=== PATIENT | female | born 1980 | race Caucasian/White ===

== ENCOUNTER 2020-11-01 23:58 | Emergency (ER) | payer BC, OTHER ==
[~2020-11-01] VITALS: Ht 157.5 cm; Wt 63.6 kg
[2020-11-02 00:04] VITALS: BP 141/101
[2020-11-02 01:08] LABS: BASOPHILS # (AUTO) 0.1 X10'3 (0-0.2); BASOPHILS % (AUTO) 0.6 % (0-1); EOSINOPHILS # (AUTO) 0.3 X10'3 (0-0.9); EOSINOPHILS % (AUTO) 3.9 % (0-6); HEMATOCRIT 41.5 % (35.0-45.0); HEMOGLOBIN 14.2 g/dl (12.0-16.0); LYMPHOCYTES % (AUTO) 33.9 % (21-51); MEAN CORPUSCULAR HEMOGLOBIN 31.9 PG (27.0-31.0); MEAN CORPUSCULAR HGB CONC 34.1 g/dL (33.0-36.5); MEAN CORPUSCULAR VOLUME 93.4 FL (78-98); MEAN PLATELET VOLUME 7.6 FL (7.4-10.4); MONOCYTES # (AUTO) 0.7 X10'3 (0-0.9); MONOCYTES % (AUTO) 7.5 % (2-12); NEUTROPHILS # (AUTO) 4.8 X10'3 (1.8-7.7); NEUTROPHILS % (AUTO) 54.1 % (42-75); PLATELET COUNT 296 X10'3 (140-440); RED BLOOD COUNT 4.45 X10'6 (4.20-5.60); WHITE BLOOD COUNT 8.8 X10'3 (4.5-11.0)
[2020-11-02 01:11] LABS: CLARITY,URINE CLEAR (Clear); COLOR,URINE STRAW (Yellow); GLUCOSE, URINE NEGATIVE (Neg); KETONES,URINE NEGATIVE (Neg); LEUKOCYTE ESTERASE ,URINE NEGATIVE (Neg); NITRITES, URINE NEGATIVE (Neg); OCCULT BLOOD,URINE NEGATIVE (Neg); PROTEIN,URINE NEGATIVE (Neg); URINE HCG NEGATIVE (NEG); UROBILINOGEN,URINE 0.2 E.U/dL (0.2-1.0)
[2020-11-02 01:17] LABS: ALANINE AMINOTRANSFERASE 51 U/L (12-78); ALBUMIN 4.1 G/DL (3.4-5.0); ALBUMIN/GLOBULIN RATIO 1.1 (1.1-1.5); ALKALINE PHOSPHATASE 101 IU/L (46-116); ANION GAP 12 (8-16); ASPARTATE AMINO TRANSFERASE 36 U/L (10-37); BILIRUBIN,TOTAL 0.2 MG/DL (0.1-1.0); BLOOD UREA NITROGEN 11 MG/DL (7-18); BUN/CREATININE RATIO 16.7 (6.6-38.0); CALCIUM 8.7 MG/DL (8.5-10.1); CHLORIDE 101 MMOL/L (99-107); CREATININE 0.66 MG/DL (0.40-0.90); GLUCOSE 94 MG/DL (70-104); LIPASE 111 U/L (73-393); POTASSIUM 3.7 MMOL/L (3.5-5.1); SODIUM 138 MMOL/L (135-145); TOTAL CARBON DIOXIDE 24.9 MMOL/L (24-32); TOTAL PROTEIN 7.8 G/DL (6.4-8.2); eGFR > 90 ML/MIN
[2020-11-02 01:32] LABS: UA COLLECTION TYPE CLN CATCH MIDSTREAM
== END 2020-11-02 04:22 | disposition left against medical advice (07) ==
LOC: ER 23:59
DX: R10.32 Left lower quadrant pain (principal); R30.0 Dysuria; Z53.21 Procedure and treatment not carried out due to patient leaving prior to being seen by health care provider
CPT/HCPCS: 36415; 80053; 81003; 81025; 83690; 85025

== ENCOUNTER 2025-01-04 08:55 | Emergency (ER) | payer OTHER ==
[~2025-01-04] VITALS: Ht 160 cm; Wt 65.5 kg
[2025-01-04 09:17] VITALS: TEMP 97.5
[2025-01-04 09:37] LABS: MEAN PLATELET VOLUME 7.2 FL (7.4-10.4); RED CELL DISTRIBUTION WIDTH 12.4 % (11.5-14.5)
[2025-01-04 09:55] LABS: CREATININE 0.72 MG/DL (0.40-0.90); TOTAL CARBON DIOXIDE 26.3 MMOL/L (24-32); eCRCL 82 ML/MIN; eGFR 88 ML/MIN
[2025-01-04 09:58] LABS: URINE HCG NEGATIVE (NEG)
[2025-01-04 10:15] LABS: LEUKOCYTE ESTERASE ,URINE NEGATIVE (Neg); NITRITES, URINE NEGATIVE (Neg); OCCULT BLOOD,URINE NEGATIVE (Neg)
[2025-01-04 10:17] LABS: UA COLLECTION TYPE CLN CATCH MIDSTREAM
[2025-01-04] MEDS ORDERED: ONDA-243 PO (11:29)
--- NOTE | 2025-01-04 11:30 | Physician Documentation ---
History of Present Illness ~ Chief Complaint: Abdominal Pain Stated Complaint: ABD PAIN Time Seen by MD: 11:21 HPI 44-year-old female presents to the ED with a complaint of midline pelvic pain for the last two days. She reports ongoing diarrhea symptoms denies any nausea or vomiting however.denies any fevers. Medication Reconciliation Allergies: Coded Allergies: No Known Allergies (Unverified , 01/04/25) Scheduled PRN ONDANSETRON ODT 4mg tablet (Ondansetron Odt), 1 TAB PO Q6H PRN PRN for nausea/vomiting Review of Systems All Other Systems at this time: Reviewed and Negative Physical Exam Vital Signs: Temperature: 97.5, Heart Rate: 93, Respiratory Rate: 15, BP: 146/94, Pulse Oximetry: 100, Weight: 65.450 Physical Exam General: Alert, no apparent distress. Chest: No accessory muscle use. Cardiovascular: Regular rate and rhythm, no murmurs. Gastrointestinal: Soft, mild lower quadrants, nondistended. Bowels sounds present. Neurologic: Oriented x4. Psychiatric: Normal mood and affect. Skin: Normal color, warm and dry. No edema, no ecchymosis. Progress Results/Orders Results/Orders Completed Orders - CHARLIE TONEY [employer] Urinalysis, Cult If Indicated (01/04/25 09:22) Hcg, Ur Ql (01/04/25 09:22) Cbc/Diff (01/04/25 09:22) Amylase (01/04/25 09:22) Lipase (01/04/25 09:22) CMP (01/04/25 09:22) Vital Signs 01/04/25 01/04/25 09:17 09:41 Temp 97.5 Pulse 93 Resp 18 15 B/P (MAP) 146/94 Pulse Ox 100 Laboratory Tests Test 01/04/25 09:30 01/04/25 09:45 White Blood Count 6.6 Red Blood Count 4.59 Hemoglobin 14.7 Hematocrit 42.3 Mean Corpuscular Volume 92.2 Mean Corpuscular Hemoglobin 32.1 H Mean Corpuscular Hemoglobin Concent 34.8 Red Cell Distribution Width 12.4 Platelet Count 276 Mean Platelet Volume 7.2 L Neutrophils (%) (Auto) 57.8 Lymphocytes (%) (Auto) 27.4 Monocytes (%) (Auto) 12.2 H Eosinophils (%) (Auto) 2.2 Basophils (%) (Auto) 0.4 Neutrophils # (Auto) 3.8 Lymphocytes # (Auto) 1.8 Monocytes # (Auto) 0.8 Eosinophils # (Auto) 0.1 Basophils # (Auto) 0.0 CBC Comment Sodium Level 135 Potassium Level 3.4 L Chloride Level 101 Carbon Dioxide Level 26.3 Anion Gap 8 Blood Urea Nitrogen 3 L Creatinine 0.72 Estimated GFR/1.73 m2 88 BUN/Creatinine Ratio 4.2 L Glucose Level 107 H Calcium Level 8.6 Total Bilirubin 0.6 Aspartate Amino Transf (AST/SGOT) 24 Alanine Aminotransferase (ALT/SGPT) 45 Alkaline Phosphatase 90 Total Protein 7.2 Albumin 3.5 Globulin 3.7 Albumin/Globulin Ratio 0.9 L Amylase Level 30 Lipase 36 Chemistry Comments Urine Specimen Description Cln catch midstream Urine Color Yellow Urine Clarity Clear Urine pH 6.0 Urine Specific [place] <=1.005 Urine Protein Negative Urine Glucose (UA) Negative Urine Ketones Negative Urine Occult Blood Negative Urine Nitrite Negative Urine Bilirubin Negative Urine Urobilinogen 0.2 Urine Leukocyte Esterase Negative Urine Culture Indicated Not ind Volume Urine Centrifuged 10 ml Urine HCG, Qualitative Negative Urine Comment Medical Decision Making Findings Patient presents with diarrhea and general viral gastroenteritis symptoms. Denies any bloody diarrhea denies any vaginal bleeding. Denies any possibility of being . I feel comfortable discharging her with Zofran and advised to stay home and maintain hydration with a close follow up instructions. Told her to return if she has any worsening symptoms or develops a severe abdominal pain or fevers Departure Disposition: 01 HOME / SELF CARE / HOMELESS Impression: Primary Impression: Viral gastroenteritis Condition: Stable Discharge Instructions: Viral Gastroenteritis, Adult Additional Instructions: Try to stay hydrated to maintain electrolyte balance . Rest for the next two days prior to going back to work if your symptoms worsen or persist feel free to return to the ED Departure Forms: Excuse form Work or School Excused From: Work Excuse beginning now through the following date: Jan 06, 2025 May Return but still avoid physical Activity from now until: Jan 06, 2025 May Return to full physical activity as of: Jan 06, 2025 Referrals: NO PRIMARY CARE PROVIDER (PCP) Prescriptions ONDANSETRON ODT 4mg tablet (ONDANSETRON ODT) 4 Mg Tab.rapdis 1 TAB PO Q6H PRN PRN for nausea/vomiting for 4 Days, #16 TAB 0 Refills Prov: CHARLIE TONEY NP 01/04/25 Signature Scribe Signature: d Attestation: Scribed for Charlie Toney Business Change Manager by Charlie Toney - NITESH . 01/04/25 11:30 CHARLIE TONEY NP Jan 04, 2025 11:30
[2025-01-04 11:52] VITALS: BP 146/94; PULSE 90; RESP 15; O2SAT 100
== END 2025-01-04 11:54 | disposition home or self-care (01) ==
LOC: ER 08:55
DX: A08.4 Viral intestinal infection, unspecified (principal)
CPT/HCPCS: 36415; 80053; 81003; 81025; 82150; 83690; 85025; 99283